=== PATIENT | male | born 1995 | race Caucasian/White ===

== ENCOUNTER 2021-12-08 10:52 | Emergency (ER) | payer SELFPAY ==
[~2021-12-08] VITALS: Ht 177.8 cm; Wt 77.1 kg
[2021-12-08 10:57] VITALS: BP 126/70
[2021-12-08] MEDS ORDERED: CEPH500C2 PO (11:08)
[2021-12-08] MEDS ORDERED: SULF1TAB48 PO (11:08)
== END 2021-12-08 11:15 | disposition home or self-care (01) ==
LOC: ER 10:55
DX: L03.114 Cellulitis of left upper limb (principal); F15.10 Other stimulant abuse, uncomplicated; F32.A Depression, unspecified; F41.9 Anxiety disorder, unspecified; Z79.899 Other long term (current) drug therapy

== ENCOUNTER 2024-12-20 05:25 | Emergency (ER) | payer MEDICAID ==
[~2024-12-20] VITALS: Ht 177.8 cm; Wt 77.1 kg
[~2024-12-20 05:25] MED LIST: CEPH500C2 PO; SULF1TAB48 PO
[2024-12-20] MEDS ORDERED: CLIN300C12 PO (05:46)
[2024-12-20] MEDS ORDERED: CLINDAMYCIN HCL 150 MG CAPSULE ONE ×2 (05:50→06:01)
[2024-12-20] MEDS: CLINDAMYCIN HCL 150 MG CAPSULE PO ONE (06:05)
[2024-12-20 06:11] VITALS: BP 112/70; TEMP 98.5; O2SAT 98
== END 2024-12-20 06:11 | disposition home or self-care (01) ==
LOC: ER 05:28
DX: L03.011 Cellulitis of right finger (principal); F41.9 Anxiety disorder, unspecified; F32.A Depression, unspecified; F19.10 Other psychoactive substance abuse, uncomplicated

== ENCOUNTER 2024-12-22 20:23 | Emergency (ER) | payer MEDICAID ==
[~2024-12-22] VITALS: Ht 177.8 cm; Wt 68.0 kg
[~2024-12-22 20:23] MED LIST changes: +CLIN300C12 PO
[2024-12-22 20:49] LABS: BASOPHILS % (AUTO) 0.5 % (0.0-2.0); EOSINOPHILS # (AUTO) 0.2 K/uL (0.0-0.7); EOSINOPHILS % (AUTO) 2.3 % (0.0-6.0); HEMATOCRIT 40 % (39-51); HEMOGLOBIN 13.7 g/dL (13.5-17.5); LYMPHOCYTES # (AUTO) 2.2 K/uL (0.8-4.8); LYMPHOCYTES % (AUTO) 24.1 % (20.0-44.0); MEAN CORPUSCULAR HEMOGLOBIN 31 PG (26.0-33.0); MEAN CORPUSCULAR HGB CONC 34 g/dl (31.0-36.0); MEAN CORPUSCULAR VOLUME 91 fL (80-96); MONOCYTES # (AUTO) 1.3 K/uL (0.1-1.30); MONOCYTES % (AUTO) 14.4 % (2.0-12.0); NEUTROPHILS # (AUTO) 5.4 K/uL (1.8-8.9); NEUTROPHILS % (AUTO) 58.7 % (43.0-81.0); PLATELET COUNT (AUTO) 355 K/uL (150-450); RED BLOOD CELL COUNT(AUTO) 4.39 MIL/uL (4.5-6.0); RED CELL DISTRIBUTION WIDTH 14.3 % (11.5-15.0); WHITE BLOOD COUNT (AUTO) 9.2 K/uL (4.3-11.0)
[2024-12-22 20:58] LABS: CALCIUM, SERUM 8.9 mg/dL (8.5-10.1); CREATININE 0.8 mg/dL (0.6-1.3); POTASSIUM 3.8 mmol/L (3.5-5.1)
[2024-12-22 21:04] LABS: ALBUMIN 3.2 g/dL (3.4-5.0); BILIRUBIN,TOTAL 0.3 mg/dL (0.2-1.0); TOTAL PROTEIN, SERUM 7.6 g/dL (6.4-8.2)
[2024-12-22] MEDS ORDERED: CEPH500C2 PO (21:33)
[2024-12-22] MEDS ORDERED: SULF1TAB48 PO (21:33)
[2024-12-22 21:52] VITALS: BP 128/80; TEMP 98; O2SAT 98
== END 2024-12-22 21:53 | disposition home or self-care (01) ==
LOC: ER 20:28
DX: L03.116 Cellulitis of left lower limb (principal); L03.115 Cellulitis of right lower limb; L03.114 Cellulitis of left upper limb; L03.113 Cellulitis of right upper limb; F15.10 Other stimulant abuse, uncomplicated; F32.A Depression, unspecified; F41.9 Anxiety disorder, unspecified; F19.10 Other psychoactive substance abuse, uncomplicated; Z59.00 Homelessness unspecified
CPT/HCPCS: 36415; 80053-TC; 85025-TC

== ENCOUNTER → 2025-01-18 | Emergency (ER) | payer MEDICAID, OTHER ==
[~2025-01-18] VITALS: Ht 175.3 cm; Wt 63.5 kg
[~2025-01-18] MED LIST changes: +CEFTRIAXONE 1 G VIAL ONE; +DOXY100T2 PO; +LIDOCAINE 1% INJ 50 ML MDV IJ ONE; +TDAP [DIPH/PERTUSSIS/TET] 0.5 ML VIAL IM ONE
[2025-01-18 17:15] VITALS: BP 133/71; TEMP 98; O2SAT 96
[2025-01-18] MEDS: CEFTRIAXONE 1 G VIAL IM STA (18:34)
[2025-01-18] MEDS: TDAP [DIPH/PERTUSSIS/TET] 0.5 ML VIAL IM ONE (18:35)
== END | disposition home or self-care (01) ==
LOC: ER 17:16
DX: L03.114 Cellulitis of left upper limb (principal); L03.113 Cellulitis of right upper limb; L03.116 Cellulitis of left lower limb; L03.115 Cellulitis of right lower limb; F15.10 Other stimulant abuse, uncomplicated; F32.A Depression, unspecified; F41.9 Anxiety disorder, unspecified; F19.10 Other psychoactive substance abuse, uncomplicated; Z59.00 Homelessness unspecified
CPT/HCPCS: 99284; 96372; 90471; 90715; J3490; J0696